=== PATIENT | female | born 1995 | race Caucasian/White ===

== ENCOUNTER → 2017-01-17 | Day surgery (SDC) | payer OTHER ==
[2017-01-16 11:36] VITALS: Ht 168.9 cm; Wt 56.8 kg
[~2017-01-17] VITALS: Ht 168.9 cm; Wt 56.8 kg
[~2017-01-17] MED LIST: PRENTAB26 PO; TRAZ100T29 PO
[2017-01-17 15:00] VITALS: BP 132/88; PULSE 70; O2SAT 100
--- NOTE | 2017-01-17 16:41 | OPERATIVE REPORT ---
DATE OF CONSULTATION: 01/17/2017 PROCEDURE NOTE: 01/17/2017. PROCEDURE: Bacterial overgrowth breath test. REQUESTING PROVIDER: Rajat Grossman M.D. ENDOSCOPIST: Peewee Guajardo M.D. NURSE: Francisca Alva. INDICATIONS: Nausea, abdominal pain. Baseline breath hydrogen was obtained in part per million. Baseline was 8 parts per million. Following baseline sampling a 10 gram dose of lactulose was ingested orally. Serial breath hydrogen was obtained and provided the following hydrogen levels: At 20 minutes - 6 ppm (parts per million), 40 minutes - 5 ppm, 60 minutes - 6 ppm, 80 minutes - 4 ppm, 100 minutes - 6 ppm, 120 minutes - 10 ppm, 140 minutes - 12 ppm, 160 minutes - 18 ppm, and 180 minutes - 15 ppm. IMPRESSION: This represents a negative bacterial overgrowth breath test. There is no evidence for this condition based on hydrogen breath assay. MTDD
== END | disposition home or self-care (01) ==
LOC: C.GI 11:18
PROVIDERS: ATTEND Internal Medicine Gastroenterology
DX: R11.0 Nausea (principal); R10.9 Unspecified abdominal pain

== ENCOUNTER → 2017-06-06 | Outpatient (CLI) | payer OTHER ==
[~2017-06-06] MED LIST changes: +OPTIRAY 320 IV PRN
--- NOTE | 2017-06-06 10:08 | DIAGNOSTIC IMAGING REPORT ---
CT OF THE ABDOMEN AND PELVIS WITH CONTRAST CLINICAL HISTORY: Epigastric pain, bloating and nausea. COMPARISON STUDY: CT of the abdomen and pelvis February 10, 2012 and pelvic ultrasound March 23, 2015. TECHNIQUE: Following IV administration of 92 mL of [id number]-[id number], axial images of the abdomen and pelvis were obtained from the lung bases to the proximal femurs. Images were reviewed in the axial, sagittal, and coronal planes. IV contrast was administered without complication. A dose lowering technique was utilized adhering to the principles of ALARA. CT DOSE: 270.01 mGy.cm FINDINGS: The liver, spleen, adrenal glands, left kidney and pancreas are unremarkable. There is no biliary ductal dilatation status post cholecystectomy. No peripancreatic infiltration is present. A 3 mm right renal calculus is noted. There is no hydronephrosis and no ureteral calculi identified. Evaluation is compromised given a paucity of intra-abdominal fat and lack of oral contrast. The appendix is normal. Caliber of small and large bowel is normal. A small amount of fluid within the pelvis is noted. No suspicious skeletal lesions are identified. Major vasculature of the abdomen and pelvis is patent. There is no lymphadenopathy. IMPRESSION: 1. No acute process within the abdomen or pelvis. Normal appendix. 2. 3 mm right renal calculus. No ureteral calculi or hydronephrosis. 3. Small amount of fluid within the pelvis which is likely physiologic. Electronically signed by: Scotty Witt M.D. 06/06/2017 10:07 AM Dictated Date/Time: 06/06/2017 9:58 AM
== END | disposition home or self-care (01) ==
LOC: C.CTS 09:02
PROVIDERS: ATTEND Internal Medicine Gastroenterology
DX: R11.0 Nausea (principal); R14.0 Abdominal distension (gaseous); R10.13 Epigastric pain; N20.0 Calculus of kidney

== ENCOUNTER → 2017-11-17 | Outpatient (CLI) | payer OTHER ==
[~2017-11-17] MED LIST changes: -OPTIRAY 320 IV PRN
[2017-11-17 16:58] LABS: BASO % 0.4 %; BASO ABS # 0.04 K/uL (0-0.2); EOS % 1.3 %; EOS ABS # 0.12 K/uL (0-0.5); HEMATOCRIT 36.9 % (37-47); IG# 0.02 K/uL (0.00-0.02); LYMPH % 21.3 %; LYMPH ABS # 1.97 K/uL (1.2-3.4); MEAN CELL VOLUME 86.6 fL (80-100); MEAN CORPUSCULAR HEMOGLOBIN 30.5 pg (25-34); MEAN CORPUSCULAR HGB CONC 35.2 g/dl (32-36); MEAN PLATELET VOLUME 10.1 fL (7.4-10.4); MONO % 7.8 %; MONO ABS # 0.72 K/uL (0.11-0.59); NEUT ABS # 6.39 K/uL (1.4-6.5); PLATELET COUNT 259 K/uL (130-400); RED CELL DISTRIBUTION WIDTH CV 13.2 % (11.5-14.5); RED CELL DISTRIBUTION WIDTH SD 41.7 fL (36.4-46.3); WHITE BLOOD COUNT 9.26 K/uL (4.8-10.8)
[2017-11-17 17:17] LABS: ALBUMIN 3.9 gm/dl (3.4-5.0); ALT/SGPT 18 U/L (12-78); AST/SGOT 12 U/L (15-37); BLOOD UREA NITROGEN 15 mg/dl (7-18); CALCIUM 9.2 mg/dl (8.5-10.1); CARBON DIOXIDE 26 mmol/L (21-32); CREATININE 1.04 mg/dl (0.60-1.20); GLUCOSE 82 mg/dl (70-99); LIPASE 92 U/L (73-393); SODIUM 137 mmol/L (136-145); TOTAL PROTEIN 7.8 gm/dl (6.4-8.2)
[2017-11-17 17:18] LABS: ALKALINE PHOSPHATASE 63 U/L (45-117)
== END | disposition home or self-care (01) ==
LOC: C.LABPBG 11:57
PROVIDERS: ATTEND Internal Medicine
DX: R10.13 Epigastric pain (principal)

== ENCOUNTER → 2018-01-03 | Outpatient (CLI) | payer OTHER | END | disposition home or self-care (01) | LOC: C.LAB 13:39 | PROVIDERS: ATTEND Neuromusculoskeletal Medicine & OMM | DX: R53.83 Other fatigue (principal); R63.5 Abnormal weight gain ==